=== PATIENT | male | born 1970 | race Caucasian/White ===

== ENCOUNTER 2017-12-07 07:17 | Emergency (ER) | payer SELFPAY ==
[2017-12-07 07:43] VITALS: BP 136/82
--- NOTE | 2017-12-07 08:07 | RAD ---
Indication: Left scrotal pain, swelling. Real-time sonography of the scrotum was performed. The right testis measures 4.7 x 2.1 x 3.1 cm. No intratesticular masses are noted. Normal flow is noted in the right testis. The epididymal head measures 1.2 x 1.6 cm with an epididymal cyst measuring up to 0.5 cm. No hydrocele is noted. The left testis measures 4.6 x 2.2 x 3.1 cm. Normal flow is noted in the left testis. The left epididymis measures 0.9 x 1.7 cm. There is an epididymal cyst measuring up to 0.3 cm. Early A normal-appearing appendix testes is noted. Trace left hydrocele is noted. IMPRESSION: No intratesticular masses are noted. Normal flow is noted in both testes.
--- NOTE | 2017-12-07 08:38 | RAD ---
CLINICAL HISTORY: bilat flank pain COMPARISON: None TECHNIQUE: Multiple contiguous axial CT scans were obtained of the abdomen and pelvis, without intravenous contrast enhancement. Coronal and sagittal multiplanar reformations are submitted for review. Oral contrast was not administered. FINDINGS: Evaluation is limited due to the lack of intravenous contrast. This limits evaluation of the solid organs and vasculature. LUNG BASES: The lung bases are clear. LIVER: The liver is normal in shape, size, contour, and attenuation. BILE DUCTS: There is no intrahepatic or extrahepatic biliary dilatation. GALLBLADDER: The gallbladder is normal, without pericholecystic inflammatory change. PANCREAS: The pancreas is normal, without mass or ductal dilatation. SPLEEN: Normal in size and appearance. UPPER GI TRACT: Evaluation of the gastrointestinal tract is limited by incomplete gastric distention. The upper GI tract is unremarkable. SMALL BOWEL AND MESENTERY: The small bowel is normal in contour, course, and caliber. There is no obstruction or dilatation. COLON: The colon is normal in contour, course, caliber. There is no pericolonic inflammatory change. There is a tubular, vermiform, hollow viscus that is blind ending, and originates from the cecum, consistent with a normal appendix. There is no periappendiceal inflammatory change. This is best seen on axial images 112 through 125. ADRENALS: Normal bilaterally. KIDNEYS: There is milk of calcium within a cyst of the midpole of the left kidney measuring 1.2 cm. There is no appreciable hydronephrosis or nephrolithiasis. BLADDER: The bladder is smooth in contour. PELVIC ORGANS: The prostate gland is normal. The seminal vesicles are symmetric. There are bilateral varicoceles AORTA: There is calcific atherosclerotic disease of the abdominal aorta and its branches, without aneurysmal dilatation IVC: Unremarkable LYMPH NODES: There is no lymphadenopathy by size criteria. ABDOMINAL WALL: There is no evidence for abdominal wall hernia. BONES AND SOFT TISSUES: Degenerative changes are noted, most pronounced at T12-L1 and L5-S1. OTHER: None IMPRESSION: NO HYDRONEPHROSIS OR NEPHROLITHIASIS. BILATERAL VARICOCELES.
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
== END 2017-12-07 09:33 | disposition home or self-care (01) ==
LOC: UCCORT 07:17
DX: M54.5 Low back pain (principal); N50.812 Left testicular pain; F17.210 Nicotine dependence, cigarettes, uncomplicated
CPT/HCPCS: 74176; 76870; 81003; 99201; G0463

== ENCOUNTER 2018-12-16 11:23 | Emergency (ER) | payer SELFPAY ==
[2018-12-16 12:42] VITALS: BP 144/69
[2018-12-16] MEDS ORDERED: Tetan/Diph/Pertus SYR(Tdap)* 0.5 ML SYR(BOOSTRIX) use SYR contains LATEX IM ONE (12:44)
--- NOTE | 2018-12-16 12:45 | UC ---
Lower Extremity/Ankle HPI - HPI Summary HPI Summary: 48 y/o male presents to the urgent care c/o RT foot and ankle pain s/p stepping on 2 nails about 6 weeks ago. Pt reports he was wearing crocs. He applied triple antibiotic for the first week. However he has noticed swelling and pain has increased w/ time and now swelling in his RT ankle. He feels body aches, but no fever. He has not taken any medication to alleviate pain. He reports Hx of Rt calcaneal fracture in 2017. He stated now he is limping due to pain. Pain w/ waking is 5/10. he has been using more his left foot to walk and for the past 2 days now he is experiencing left foot pain w/ mild swelling over the left 2nd toe. He can't recalled any injury to his left foot. Pt denies fever, calf pain, dizziness, numbness or tingling sensation over the lower extremities , SOB, chest pain, abdominal pain, N/V/D, Hx of gout or tick bites. - History of Current Complaint Chief Complaint: UCLowerExtremity Stated Complaint: STEPPED ON NAILS 6 WEEKS AGO. STILL IN PAIN Time Seen by Provider: 12/16/18 12:38 Hx Obtained From: Patient Onset/Duration: Sudden Onset, Lasting Weeks - 6 weeks ago steppin on a nail now RT foot w/ moderate pain and swelling, Still Present, Worse Since - 1 week Severity Currently: Moderate Pain Intensity: 8 - walking Pain Scale Used: 0-10 Numeric Aggravating Factor(s): Ambulation Alleviating Factor(s): Rest, Elevation, Ice Able to Bear Weight: Yes - Risk Factors Gout Risk Factors: Negative DVT Risk Factors: Negative Septic Arthritis Risk Factor: Negative - Allergies/Home Medications Allergies/Adverse Reactions: Allergies Allergy/AdvReac Type Severity Reaction Status Date / Time No Known Allergies Allergy Verified 12/16/18 12:42 PMH/Surg Hx/FS Hx/Imm Hx Previously Healthy: Yes - Pt denies PMHX - Surgical History Surgical History: None Surgery Procedure, Year, and Place: 2004 LEFT FIFTH FINGER TENDON REPAIR [place]. 11/2012 RIGHT SHOULDER [facility]. right ankle 2012 - Family History Known Family History: Positive: Cardiac Disease, Hypertension, Other - cancer - Social History Occupation: Employed Full-time Lives: With Family Alcohol Use: Occasionally Alcohol Amount: 2-3 DRINKS/MONTH Substance Use Type: None Smoking Status (MU): Light Every Day Tobacco Smoker Type: Cigarettes Amount Used/How Often: 1 pack per week Have You Smoked in the Last Year: Yes Review of Systems All Other Systems Reviewed And Are Negative: Yes Constitutional: Positive: Other - body aches Skin: Positive: Other - RT sole w/ puncture wound s/p stepping on 2 nails about 6 weeks ago Eyes: Positive: Negative ENT: Positive: Negative Respiratory: Positive: Negative Cardiovascular: Positive: Negative Gastrointestinal: Positive: Negative Genitourinary: Positive: Negative Motor: Positive: Negative Neurovascular: Positive: Negative Musculoskeletal: Positive: Decreased ROM - RT foot, Other: - RT ankle, foot pain and swelling and left foot pain Neurological: Positive: Negative Psychological: Positive: Negative Is Patient Immunocompromised?: No Physical Exam - Summary Physical Exam Summary: Vital Signs Reviewed: Yes General : well developed, well nourished male w/o any apparent distress Eyes: Positive: Conjunctiva Clear - PERRLA, EOMI ENT: Positive: Normal ENT inspection, Hearing grossly normal, Pharynx normal, TMs normal Neck: Positive: Supple, Nontender, No Lymphadenopathy Respiratory: Positive: Chest non-tender, Lungs clear, Normal breath sounds, No respiratory distress Cardiovascular: Positive: RRR, No Murmur, Pulses Normal Abdomen Description: Positive: Nontender, No Organomegaly, Soft. Negative: CVA Tenderness (R), CVA Tenderness (L) Bowel Sounds: Positive: Present Musculoskeletal: Positive: Strength Intact, ROM Intact, No Edema, B/L Foot/Toes : Pt is able to bear weight but ambulate with mild limping. RT foot :w/ 2 discrete puncture wounds on the mid plantar side of the RT foot w/ mild surrounding erythema, and swelling, tender to palpation.RT ankle w/mild swelling over the lateral malleolus. as well as the left 2nd toe swelling w/ mild bruise, FROM of lower extremities, surface trauma, ecchymosis, erythema, lesions, ulcers or break in skin integrity on left foot. The R foot is without obvious asymmetry or deformity when compared to the L foot. No bony step-off, No tenderness to palpation over toes, point tenderness over the dorsal side of mid foot around puncture wound. NO tenderness of hindfoot, Decrease plantar/ dorsiflexion, inversion/eversion due to pain. Distal motor and neurovascular status are intact. Neurological Exam: Normal Psychological Exam: Normal Skin Exam: Normal Triage Information Reviewed: Yes Vital Signs: Initial Vital Signs Temp 98.5 F 12/16/18 12:38 Pulse 58 12/16/18 12:38 Resp 16 12/16/18 12:38 BP 144/69 12/16/18 12:38 Pulse Ox 98 12/16/18 12:38 Lower Extremity Course/Dx - Course Course Of Treatment: 48 y/o male presents to the urgent care c/o RT foot and ankle pain s/p stepping on 2 nails about 6 weeks ago. Pt reports he was wearing crocs. He applied triple antibiotic for the first week. However he has noticed swelling and pain has increased w/ time and now swelling in his RT ankle. He feels body aches, but no fever. He has not taken any medication to alleviate pain. He reports Hx of Rt calcaneal fracture in 2017. He stated now he is limping due to pain. Pain w/ waking is 5/10. he has been using more his left foot to walk and for the past 2 days now he is experiencing left foot pain w/ mild swelling over the left 2nd toe. He can't recalled any injury to his left foot. Pt denies fever, calf pain, dizziness, numbness or tingling sensation over the lower extremities , SOB, chest pain, abdominal pain, N/V/D, Hx of gout or tick bites. Hx obtained. Pt is hemodynamically stable, A&OX3, Vitals: WNL. Pt w/ 2 discrete puncture wounds on the mid plantar side of the RT foot w/ mild surrounding erythema, and swelling, RT ankle w/mild swelling over the lateral malleolus. as well as the left 2nd toe swelling w/ mild bruise, FROM of lower extremities on examination. BL foot X-ray and RT ankel X-ray ordered. IMPRESSION: 1. NO EVIDENCE FOR FRACTURE. 2. NO RADIOPAQUE FOREIGN BODY. 3. NO EROSIVE OSSEOUS CHANGES (RADIOGRAPH IS INSENSITIVE FOR ACUTE OSTEOMYELITIS). Pt given Ibuproen PO and Tadp by the nurse. pt tolerated well medication and vaccine. Wound cleaned w/ iodines swab and bacitracin applied. sterile dressing applied and Pt declined post-op shoe and states he has crutches at home. Symptoms discussed w/ Dr Carson who recommends levofloxacin 500mg PO x 5 days and f/u w/ [facility]. Pt Rx Levofloxacin PO and Ibuprofen PO as directed below and advised to keep wound clean and dry and use crutches to avoid to much flexion of RT foot until he can f/u w/ his appt on w/ Sm[facility] [employer] [facility] DR Hsu for further management in his symptoms. Pt's BP is elevated today advised to decrease salt in diet, monitor BP and f/u with PCP for further management. D/c instructions explained. Pt understood and agreed w/ plan of care and left clinic ambulating. - Differential Dx/Diagnosis Differential Diagnosis/HQI/PQRI: Arthritis, Cellulitis, Contusion, Fracture ( Closed), Gout, Infection, Sprain, Strain, Tendonitis, Other - puncture wound Provider Diagnosis: Bilateral foot pain, Puncture wound of right foot excluding toes with infection , Elevated BP without diagnosis of hypertension - Physician Notifications Discussed Patient Care With: Roberto Carson - Dr Carson agreed w/ Pt's plan of care. Discharge ED - Sign-Out/Discharge Documenting (check all that apply): Patient Departure - D/C home All imaging exams completed and their final reports reviewed: Yes - Discharge Plan Condition: Stable Disposition: HOME Prescriptions: Ibuprofen TAB* [Motrin TAB* 600 MG] 600 mg PO Q6H PRN #30 tab PRN Reason: moderate pain Levofloxacin TAB* [Levaquin 500 Tab*] 500 mg PO DAILY #5 tab Patient Education Materials: Puncture Wound (ED) Referrals: [facility] [place] [facility] [Outside] - 3 Days Daljit Hsu DPM [Doctor of Podiatric Medicine] - 3 Days Additional Instructions: 1-Please take Levofloxacin PO as directed to alleviate symptoms 2- Take Ibuprofen PO 600mg PO q6-8hrs prn after meals as directed to alleviate pain and swelling.Apply Bacitracin oint over affected area 2/days x 7 days. 3-Please foot foot immobilized with the Prakash bandage. Avoid strenuous exercise or standing for long periods of time, use crutches you have at home to decrease swelling and avoid flexion of your foot since you declined the post-op shoe 4- Please f/u with your PCP or Podiatris DR Hsu in 3 days since you already have an appt for for further evaluation and treatment. 5- If you develop fever, severe pain with swelling please go immediately to the ER for further management 6- Your BP is elevated today. please decrease salt in your diet, monitor BP and if it continues to be elevated please f/u with your PCP for further management. - Billing Disposition and Condition Condition: STABLE Disposition: Home
[2018-12-16] MEDS ORDERED: Ibuprofen TAB* 400 MG PO ONE (13:02)
== END 2018-12-16 14:21 | disposition home or self-care (01) ==
LOC: UCCORT 11:23
DX: S91.331A Puncture wound without foreign body, right foot, initial encounter (principal); R03.0 Elevated blood-pressure reading, without diagnosis of hypertension; L08.9 Local infection of the skin and subcutaneous tissue, unspecified; W45.0XXA Nail entering through skin, initial encounter; Y92.89 Other specified places as the place of occurrence of the external cause; M25.571 Pain in right ankle and joints of right foot; M25.572 Pain in left ankle and joints of left foot
CPT/HCPCS: 90471; 90715; 99212; A9270-GY; G0463